=== PATIENT | male | born 1945 | race Caucasian/White ===

== ENCOUNTER 2016-12-21 09:11 | Inpatient (IN) | payer OTHER, MEDICAID ==
[2016-12-21 09:15] VITALS: BMI 28.5
--- NOTE | 2016-12-21 09:30 | ED PDOC ---
HPI: Chest Pain Time Seen by Provider: 12/21/16 09:18 Chief Complaint (Nursing): GI Problem Chief Complaint (Provider): Chest pain History Per: Patient History/Exam Limitations: no limitations Onset/Duration Of Symptoms: Days (x2 days) Current Symptoms Are (Timing): Better Additional Complaint(s): 71 y/o male with a past medical history of hypertension, Parkinson's disease, and Peripheral vascular disease (PVD) who presents to the emergency department with a complaint of a chest pain described as heavy and non-radiating since 12/19/2016. Associated with vomiting and shortness of breath. Reports symptoms resolved this morning on his way to the emergency department. Denies any further medical complaints. Past Medical History Reviewed: Historical Data, Nursing Documentation, Vital Signs Vital Signs: Last Vital Signs Temp 98 F 12/21/16 09:14 Pulse 109 H 12/21/16 09:14 Resp BP 105/63 12/21/16 09:14 Pulse Ox 100 12/21/16 10:40 - Medical History PMH: HTN, Parkinson's Disease Other PMH: Peripheral vascular disease (PVD) - Surgical History Surgical History: No Surg Hx - Family History Family History: States: Unknown Family Hx - Allergies Allergies/Adverse Reactions: Allergies Allergy/AdvReac Type Severity Reaction Status Date / Time No Known Allergies Allergy Verified 12/21/16 09:21 Review of Systems ROS Statement: Except As Marked, All Systems Reviewed And Found Negative (As per HPI otherwise negative) Cardiovascular: Positive for: Chest Pain (Heaviness and non radiating) Respiratory: Positive for: Shortness of Breath Gastrointestinal: Positive for: Vomiting Physical Exam - Reviewed Nursing Documentation Reviewed: Yes Vital Signs Reviewed: Yes - Physical Exam Appears: Positive for: Well, Non-toxic, No Acute Distress Head Exam: Positive for: ATRAUMATIC, NORMAL INSPECTION, NORMOCEPHALIC Skin: Positive for: Normal Color, Warm, Dry Cardiovascular/Chest: Positive for: Regular Rate, Rhythm. Negative for: Murmur Respiratory: Positive for: Normal Breath Sounds (Lungs clear bilaterally). Negative for: Accessory Muscle Use, Respiratory Distress Gastrointestinal/Abdominal: Positive for: Normal Exam, Soft. Negative for: Tenderness Extremity: Positive for: Normal ROM, Other (Tremor noted to the right upper extremity). Negative for: Tenderness, Swelling Neurologic/Psych: Positive for: Alert, Oriented (x3) - Laboratory Results Result Diagrams: 12/21/16 10:25 12/21/16 10:25 - ECG O2 Sat by Pulse Oximetry: 100 (RA) Pulse Ox Interpretation: Normal - Progress Re-evaluation Time: 10:36 Condition: Improved - Critical Care Total Time (In Min): 30 Documented Critical Care: Time excludes all time spent performint seperately billable procedures Medical Decision Making Medical Decision Making: Time: 09:24 Initial Impression: Chest pain Initial Plan: --EKG --CMP --Troponin I --Urine DIP --CBC w. diff --Chest x-ray --Aspirin 325 mg PO --Reevaluation Pt developed tachycardic rhym irreg irreg. c/o mild chest pain, denies dizziness. EKG revealed Afib with RVR. BP 107/85 Cardizem 10 mg IVP given with heart rate 80-95 BP 85/56. Pt denies dizziness. Will give Dig 0.25 mg IVP and hold cardizem drip until BP improves. Time: 10:22 --Cardizem 125mg IV 5mg/hr --Lanoxin 0.25 mg IVP Time: 10:35 --Admit to hospital routine: As inpatient in telemetry for Afib RVR and chest pain under the care of Dr. Yfn Haynes MD Scribe Attestation: Documented by Marie Ortiz, acting as a scribe for George Nguyễn MD. Provider Scribe Attestation: All medical record entries made by the Scribe were at my direction and personally dictated by me. I have reviewed the chart and agree that the record accurately reflects my personal performance of the history, physical exam, medical decision making, and the department course for this patient. I have also personally directed, reviewed, and agree with the discharge instructions and disposition. Disposition - Clinical Impression Clinical Impression: Atrial fibrillation with RVR, Chest pain - Patient ED Disposition Is Patient to be Admitted: Yes - Disposition Disposition Time: 10:35 Condition: FAIR - Pt Status Changed To: Hospital Disposition Of: Inpatient - Admit Certification Admit to Inpatient:: After my assessment, the patient will require hospitalization for at least two midnights. This is because of the severity of symptoms shown, intensity of services needed, and/or the medical risk in this patient being treated as an outpatient. - POA Present On Arrival: None
[2016-12-21] MEDS ORDERED: Digoxin 500 mcg/2ml (0.5 mg/2ml) Inj IVP STA (10:23)
[2016-12-21] MEDS ORDERED: Digoxin 500 mcg/2ml (0.5 mg/2ml) Inj ONE (10:37)
[2016-12-21 10:45] LABS: BASO % 0.7 % (0.0-2.0); HEMATOCRIT 38.3 % (35.0-51.0); LYMPH # 0.5 K/uL (1.0-4.3); LYMPH % 7.8 % (20.0-40.0); MEAN CELL VOLUME 88.5 fl (80.0-94.0); MEAN CORPUSCULAR HEMOGLOBIN 29.6 pg (27.0-31.0); MEAN CORPUSCULAR HGB CONC 33.4 g/dL (33.0-37.0); MEAN PLATELET VOLUME 10.5 fl (7.2-11.7); MONO # 0.3 K/uL (0.0-0.8); MONO % 4.3 % (0.0-10.0); NEUT # 5.7 K/uL (1.8-7.0); NEUT % 87.2 % (50.0-75.0); NRBC % 0.2 % (0.0-0.0); PLATELET COUNT 148 K/uL (130-400); RED CELL DISTRIBUTION WIDTH 13.3 % (11.5-14.5); WHITE BLOOD COUNT 6.5 K/uL (4.8-10.8)
[2016-12-21 11:01] LABS: ALB/GLOB RATIO 1.4 (1.0-2.1); ALKALINE PHOSPHATASE 39 U/L (38-126); ALT/SGPT 48 U/L (21-72); AST/SGOT 64 U/L (17-59); BILIRUBIN,TOTAL 1.1 mg/dl (0.2-1.3); BLOOD UREA NITROGEN 35 mg/dl (9-20); CALCIUM 8.9 mg/dL (8.4-10.2); CARBON DIOXIDE 19 mmol/L (22-30); CHLORIDE 104 mmol/L (98-107); GFR AFRICAN-AMERICAN > 60; GLUCOSE,RANDOM 76 mg/dL (75-110); SODIUM 140 mmol/l (132-148); TOTAL PROTEIN 7.5 G/DL (6.3-8.2)
[2016-12-21] MEDS ORDERED: Enoxaparin 60 mg Syringe SC ONE (11:02)
[2016-12-21 12:07] LABS: NEUTROPHIL 87 % (42-75); TOTAL CELLS COUNTED 100
[2016-12-21 12:08] LABS: LARGE PLATELETS PRESENT
--- NOTE | 2016-12-21 13:56 | CP.PCM.CON ---
Past Patient History - Past Social History Smoking Status: Never Smoked - CARDIAC Hx Hypertension: Yes - PULMONARY Hx Asthma: Yes - NEUROLOGICAL Hx Parkinson's Disease: Yes - PSYCHIATRIC Hx Substance Use: No - SURGICAL HISTORY Hx Surgeries: No - ANESTHESIA Hx Anesthesia: No Meds Allergies/Adverse Reactions: Allergies Allergy/AdvReac Type Severity Reaction Status Date / Time No Known Allergies Allergy Verified 12/21/16 09:21 - Medications Medications: Current Medications Diltiazem HCl (Cardizem) 10 mg IVP ONCE ONE Stop: 12/21/16 13:53 Diltiazem HCl 100 mg/ Sodium (Chloride) 100 mls @ 5 mls/hr IV .Q20H ONE; 5 MG/ HR PRN Reason: Protocol Stop: 12/22/16 06:21 Last Admin: 12/21/16 11:00 Dose: Not Given Results - Vital Signs Recent Vital Signs: Last Vital Signs Temp 98 F 12/21/16 09:14 Pulse 100 H 12/21/16 12:29 Resp 17 12/21/16 12:29 BP 155/77 H 12/21/16 12:29 Pulse Ox 99 12/21/16 12:29 - Labs Result Diagrams: 12/23/16 04:15 12/23/16 04:15 Labs: Laboratory Results - last 24 hr 12/21/16 12/21/16 10:25 10:25 WBC 6.5 RBC 4.33 L Hgb 12.8 Hct 38.3 MCV 88.5 MCH 29.6 MCHC 33.4 RDW 13.3 Plt Count 148 MPV 10.5 Neut % (Auto) 87.2 H Lymph % (Auto) 7.8 L [place] % (Auto) 4.3 Eos % (Auto) 0.0 Baso % (Auto) 0.7 Neut # 5.7 Lymph # 0.5 L [place] # 0.3 Eos # 0.0 Baso # 0.0 Neutrophils % (Manual) 87 H Band Neutrophils % 1 Lymphocytes % (Manual) 8 L Monocytes % (Manual) 4 Platelet Estimate Normal Large Platelets Present Anisocytosis (manual) Slight Sodium 140 Potassium 4.0 Chloride 104 Carbon Dioxide 19 L Anion Gap 21 H BUN 35 H Creatinine 0.8 Est GFR ( Amer) > 60 Est GFR (Non-Af Amer) > 60 Random Glucose 76 Calcium 8.9 Total Bilirubin 1.1 AST 64 H ALT 48 Alkaline Phosphatase 39 Troponin I 0.2840 H* Total Protein 7.5 Albumin 4.3 Globulin 3.1 Albumin/Globulin Ratio 1.4 Assessment & Plan (1) NSTEMI (non-ST elevated myocardial infarction) Status: Acute (2) Atrial fibrillation with RVR Status: Acute (3) Chest pain Status: Acute - Assessment and Plan (Free Text) Plan: PLAN FOR CATH TOMORROW. AFIB CONVERTED POST MAG DRIP. PT HAD RECENT GI ILLNESS WITH DIARRHEA CARDIZEM DRIP DECREASED AND METOPROLOL ADDED. PT NOW IN SR MONITOR AND REPLEAT LYTES. IVF FOR HYDRATION
[2016-12-21] MEDS ORDERED: Magnesium Sulfate 2 gm/50 ml 2 GM/50 ML BAG IVPB ONE (14:03)
[2016-12-21] MEDS ORDERED: Sodium Chloride 0.9% 1,000 ML IV SCH ×2 (15:30→20:11)
--- NOTE | 2016-12-21 15:41 | RAD ---
HISTORY: chest pain COMPARISON: No prior. TECHNIQUE: Chest PA and lateral FINDINGS: LUNGS: No active pulmonary disease. PLEURA: No significant pleural effusion identified. No pneumothorax apparent. CARDIOVASCULAR: Normal. OSSEOUS STRUCTURES: No significant abnormalities. VISUALIZED UPPER ABDOMEN: Normal. OTHER FINDINGS: None. IMPRESSION: No active disease.
[2016-12-21] MEDS ORDERED: Enoxaparin 60 mg Syringe SC SCH (21:00)
[2016-12-22 02:34] LABS: ALB/GLOB RATIO 1.3 (1.0-2.1); ALKALINE PHOSPHATASE 30 U/L (38-126); ALT/SGPT 53 U/L (21-72); AST/SGOT 51 U/L (17-59); BILIRUBIN,TOTAL 0.7 mg/dl (0.2-1.3); BLOOD UREA NITROGEN 25 mg/dl (9-20); CARBON DIOXIDE 23 mmol/L (22-30); CHLORIDE 106 mmol/L (98-107); CHOLESTEROL 108 mg/dL (0-199); GFR AFRICAN-AMERICAN > 60; GLUCOSE,RANDOM 85 mg/dL (75-110); POTASSIUM 3.9 MMOL/L (3.6-5.0); SODIUM 137 mmol/l (132-148)
[2016-12-22 02:53] LABS: T4 6.58 ug/dl (5.5-11.0)
[2016-12-22 03:04] LABS: THYROID STIMULATING HORMONE 0.71 mIU/ML (0.46-4.68)
[2016-12-22 05:41] LABS: BASO % 0.5 % (0.0-2.0); EOS % 0.1 % (0.0-4.0); HEMATOCRIT 34.1 % (35.0-51.0); LYMPH # 1.2 K/uL (1.0-4.3); LYMPH % 21.2 % (20.0-40.0); MEAN CELL VOLUME 90.3 fl (80.0-94.0); MEAN CORPUSCULAR HEMOGLOBIN 29.3 pg (27.0-31.0); MEAN CORPUSCULAR HGB CONC 32.5 g/dL (33.0-37.0); MEAN PLATELET VOLUME 11.3 fl (7.2-11.7); MONO # 0.5 K/uL (0.0-0.8); MONO % 9.4 % (0.0-10.0); NEUT % 68.8 % (50.0-75.0); RED CELL DISTRIBUTION WIDTH 12.9 % (11.5-14.5); WHITE BLOOD COUNT 5.8 K/uL (4.8-10.8)
--- NOTE | 2016-12-22 08:39 | CARD ---
APPROVED REPORT EKG Measurement Heart [id number] <Conclusion> Undetermined rhythm Marked ST abnormality, possible inferior subendocardial injury Abnormal ECG
[2016-12-22] MEDS ORDERED: Patient's Own Med (Multivitamin [Daily Vite] 1 TAB) PO SCH (09:00)
[2016-12-22] MEDS ORDERED: Patient's Own Med (Metformin Er [Glucophage Xr] 500 mg) PO SCH (09:00)
[2016-12-22 09:04] LABS: PARTIAL THROMBOPLASTIN TIME 34.9 Seconds (25.6-37.1)
[2016-12-22] MEDS ORDERED: Dextrose 50% SYRINGE Inj (50 ml) IVP ONE (10:56)
[2016-12-22] MEDS: Pantoprazole 40 mg EC Tab PO SCH (11:15)
[2016-12-22] MEDS: Carbidopa/Levodopa 25/250 PO SCH ×2 (11:15→21:48)
[2016-12-22] MEDS: Levothyroxine 75 MCG TAB PO SCH (11:15)
[2016-12-22] MEDS: Multivitamin With Minerals Tab PO SCH (11:16)
--- NOTE | 2016-12-22 20:50 | CP.PCM.HP ---
Past Patient History - Past Medical History & Family History Past Medical History?: Yes - Past Social History Smoking Status: Never Smoked - CARDIAC Hx Hypertension: Yes - PULMONARY Hx Asthma: Yes - NEUROLOGICAL Hx Parkinson's Disease: Yes - HEENT Hx HEENT Problems: No - RENAL Hx Chronic Kidney Disease: No - ENDOCRINE/METABOLIC Hx Endocrine Disorders: Yes - HEMATOLOGICAL/ONCOLOGICAL Hx Blood Disorders: No - INTEGUMENTARY Hx Dermatological Problems: No - MUSCULOSKELETAL/RHEUMATOLOGICAL Hx Musculoskeletal Disorders: Yes Hx Falls: No - GENITOURINARY/GYNECOLOGICAL Hx Genitourinary Disorders: No - PSYCHIATRIC Hx Substance Use: No - SURGICAL HISTORY Hx Surgeries: No - ANESTHESIA Hx Anesthesia: No Meds Allergies/Adverse Reactions: Allergies Allergy/AdvReac Type Severity Reaction Status Date / Time No Known Allergies Allergy Verified 12/21/16 09:21 Results - Vital Signs Recent Vital Signs: Last Vital Signs Temp 97.2 F L 12/22/16 20:29 Pulse 66 12/22/16 20:29 Resp 20 12/22/16 20:29 BP 154/80 H 12/22/16 20:29 Pulse Ox 98 12/22/16 20:29 - Labs Result Diagrams: 12/22/16 04:10 12/22/16 02:21 Labs: Laboratory Results - last 24 hr 12/22/16 12/22/16 12/22/16 02:21 02:45 04:10 WBC 5.8 RBC 3.78 L Hgb 11.1 L Hct 34.1 L MCV 90.3 MCH 29.3 MCHC 32.5 L RDW 12.9 Plt Count 124 L D MPV 11.3 Neut % (Auto) 68.8 Lymph % (Auto) 21.2 [place] % (Auto) 9.4 Eos % (Auto) 0.1 Baso % (Auto) 0.5 Neut # 4.0 Lymph # 1.2 [place] # 0.5 Eos # 0.0 Baso # 0.0 PT INR APTT Sodium 137 Potassium 3.9 Chloride 106 Carbon Dioxide 23 Anion Gap 13 BUN 25 H Creatinine 0.8 Est GFR ( Amer) > 60 Est GFR (Non-Af Amer) > 60 POC Glucose (mg/dL) Random Glucose 85 Calcium 8.0 L Total Bilirubin 0.7 AST 51 ALT 53 Alkaline Phosphatase 30 L D Troponin I 1.5900 H* Total Protein 6.0 L Albumin 3.4 L D Globulin 2.6 Albumin/Globulin Ratio 1.3 Triglycerides 68 Cholesterol 108 LDL Cholesterol Direct 52 HDL Cholesterol 41 Vitamin B12 693 Thyroxine (T4) 6.58 Total T3 0.609 L TSH 3rd Generation 0.71 12/22/16 12/22/16 12/22/16 08:00 10:55 11:15 WBC RBC Hgb Hct MCV MCH MCHC RDW Plt Count MPV Neut % (Auto) Lymph % (Auto) [place] % (Auto) Eos % (Auto) Baso % (Auto) Neut # Lymph # [place] # Eos # Baso # PT 12.1 INR 1.1 APTT 34.9 Sodium Potassium Chloride Carbon Dioxide Anion Gap BUN Creatinine Est GFR ( Amer) Est GFR (Non-Af Amer) POC Glucose (mg/dL) 67 202 H Random Glucose Calcium Total Bilirubin AST ALT Alkaline Phosphatase Troponin I Total Protein Albumin Globulin Albumin/Globulin Ratio Triglycerides Cholesterol LDL Cholesterol Direct HDL Cholesterol Vitamin B12 Thyroxine (T4) Total T3 TSH 3rd Generation
[2016-12-22] MEDS ORDERED: Enoxaparin 60 mg Syringe SC SCH (21:00)
[2016-12-23 06:08] LABS: HEMATOCRIT 34.8 % (35.0-51.0); MEAN CORPUSCULAR HGB CONC 32.6 g/dL (33.0-37.0); RED CELL DISTRIBUTION WIDTH 13.1 % (11.5-14.5); WHITE BLOOD COUNT 5.1 K/uL (4.8-10.8)
[2016-12-23 06:17] LABS: ALB/GLOB RATIO 1.2 (1.0-2.1); ALKALINE PHOSPHATASE 28 U/L (38-126); AST/SGOT 40 U/L (17-59); BILIRUBIN,TOTAL 0.6 mg/dl (0.2-1.3); BLOOD UREA NITROGEN 12 mg/dl (9-20); CALCIUM 7.7 mg/dL (8.4-10.2); CARBON DIOXIDE 24 mmol/L (22-30); CHLORIDE 108 mmol/L (98-107); GFR AFRICAN-AMERICAN > 60; GLUCOSE,RANDOM 98 mg/dL (75-110); POTASSIUM 3.4 MMOL/L (3.6-5.0); SODIUM 139 mmol/l (132-148); TOTAL PROTEIN 5.6 G/DL (6.3-8.2)
[2016-12-23 06:18] LABS: ALT/SGPT 24 U/L (21-72)
[2016-12-23] MEDS: Pantoprazole 40 mg EC Tab PO SCH (08:48)
[2016-12-23] MEDS: Multivitamin With Minerals Tab PO SCH ×2 (08:51→08:58)
[2016-12-23] MEDS: Levothyroxine 75 MCG TAB PO SCH (08:51)
[2016-12-23] MEDS: Carbidopa/Levodopa 25/250 PO SCH ×3 (08:52→18:32)
--- NOTE | 2016-12-23 09:48 | HP ---
CHIEF COMPLAINT: Chest pain. HISTORY OF PRESENT ILLNESS: This is a 71-year-old man with known case of Parkinson disease and hypertension and peripheral vascular disease, who [facility] and being followed up by private physicians over there, who was having on and off chest pains, started since last Thursday, associated with shortness of breath and occasional episodes of vomiting. So, patient was brought to emergency room and was admitted for further management. REVIEW OF SYSTEMS: Positive for chest pain, shortness of breath, and episodes of vomiting. Review of systems otherwise is negative for headache, dizziness, syncope, loss of consciousness, nausea, diarrhea, constipation, any knee joint or extremity pain. Review of systems of all other organ system is unremarkable. PAST MEDICAL HISTORY: Significant for hypertension, Parkinson disease, and peripheral vascular disease. PAST SURGICAL HISTORY: Unremarkable. PERSONAL HISTORY: Patient is currently nonsmoker and nondrinker. No substance abuse. MEDICATIONS: Patient is on multiple medications, which is as per reconciliation sheet, which was reviewed and ordered. FAMILY HISTORY: Noncontributory. PHYSICAL EXAMINATION: GENERAL: Well-built, well-nourished, overweight [place] male, in no acute distress. VITAL SIGNS: Temperature 99.3, pulse 70, respirations 20, and blood pressure 112/64. HEENT: Pupils reacting to light. No nystagmus. Normocephalic, atraumatic skull. NECK: No JVD. No thyromegaly. No lymphadenopathy. HEART: S1 and S2, normal and regular. No significant murmur, gallop, or rub is heard. LUNGS: Shows good bilateral air exchange. No rales or rhonchi. ABDOMEN: Soft and nontender. No organomegaly. No fluids. Bowel sounds are present. EXTREMITIES: No edema. No calf swelling. No tenderness. No acute ischemia. CENTRAL NERVOUS SYSTEM: Patient is alert, awake, oriented x3. There is no sign of any acute gross focal motor or sensory neurological deficits. DIAGNOSTIC DATA: Available diagnostic data reviewed. Telemetry monitoring does not reveal significant arrhythmias. WBC is 5.8, hemoglobin 11.1, hematocrit 34.1, platelets 124. Sodium 137, potassium 3.9, chloride 106, bicarb 23, BUN 25, creatinine 0.8. SMA-12 is unremarkable. Troponin levels are 0.28, 1.93, 1.59. ADMITTING IMPRESSION: Acute non-ST myocardial infarction, coronary artery disease, hypertension, Parkinson disease, overweight. PLAN: As ordered. Case and plan discussed with patient. Yfn Haynes MD
[2016-12-23] MEDS ORDERED: Perflutren Lipid Microsphere 1.5 ML SUS IV ONE (11:45)
--- NOTE | 2016-12-23 11:58 | CARD ---
APPROVED REPORT EKG Measurement Heart [id number] <Conclusion> Atrial fibrillation with rapid ventricular response with premature ventricular or aberrantly conducted complexes ST depression, consider subendocardial injury Abnormal ECG
--- NOTE | 2016-12-23 14:49 | CARD ---
APPROVED REPORT EXAM: Two-dimensional and M-mode echocardiogram with Doppler, color Doppler with contrast. Other Information Quality : GoodRhythm : NSR INDICATION Non STEMI Echo Enhancing Agent Indication: Endocardial border delineation Agent/Amount Used: Definity 2D DIMENSIONS IVSd1.31 (0.7-1.1cm)LVDd4.04 (3.9-5.9cm) LVOT Diameter1.99 (1.8-2.4cm)PWd0.96 (0.7-1.1cm) IVSs1.84 (0.8-1.2cm)LVDs2.61 (2.5-4.0cm) FS (%) 35.2 %PWs1.54 (0.8-1.2cm) M-Mode DIMENSIONS Left Atrium (MM)4.88 (2.5-4.0cm)IVSd1.65 (0.7-1.1cm) Aortic Root3.69 (2.2-3.7cm)LVDd4.36 (4.0-5.6cm) Aortic Cusp Exc.1.96 (1.5-2.0cm)PWd1.16 (0.7-1.1cm) IVSs2.01 cmFS (%) 49 % LVDs2.23 (2.0-3.8cm)PWs1.63 cm Aortic Valve AI P 1/2 Ooda172tw Mitral Valve MV E Gqughaja84.7cm/sMV DECEL [id number] A Zjktmwqw17.3cm/s MV RCL72ekF/A ratio0.8MVA (PHT)2.69cm2 TDI Lateral E' Peak V7.25cm/sMedial E' Peak V4.24cm/sE/Lateral E'11.1 E/Medial E'19.0 Pulmonary Valve PV Peak Tljqmvau845.7cm/s LEFT VENTRICLE The left ventricle is normal size. There is mild concentric left ventricular hypertrophy. The left ventricular function is normal. The left ventricular ejection fraction is within the normal range. The Ejection Fraction is 60-65%. There is mild hypokinesis in the apical anterior wall. The left ventricular diastolic function is normal. No left ventricle thrombus noted on this study. RIGHT VENTRICLE The right ventricle is normal size. There is normal right ventricular wall thickness. The right ventricular systolic function is normal. ATRIA The left atrium size is normal. The right atrium size is normal. The interatrial septum is intact with no evidence for an atrial septal defect. AORTIC VALVE The aortic valve is normal in structure and function. There is moderate aortic regurgitation. There is no aortic valvular stenosis. There is no aortic valvular vegetation. MITRAL VALVE The mitral valve is normal in structure and function. There is no evidence of mitral valve prolapse. There is no mitral valve stenosis. There is no mitral valve regurgitation noted. TRICUSPID VALVE The tricuspid valve is normal in structure and function. There is no tricuspid valve regurgitation noted. There is no tricuspid valve prolapse or vegetation. There is no tricuspid valve stenosis. PULMONIC VALVE The pulmonary valve is normal in structure and function. There is no pulmonic valvular regurgitation. There is no pulmonic valvular stenosis. GREAT VESSELS The aortic root is normal in size. The IVC is normal in size and collapses >50% with inspiration. PERICARDIAL EFFUSION The pericardium appears normal. There is no pleural effusion. <Conclusion> The left ventricle is normal size. There is mild concentric left ventricular hypertrophy. The left ventricular function is normal. The left ventricular ejection fraction is within the normal range. The Ejection Fraction is 60-65%. There is moderate aortic regurgitation.
[2016-12-23 16:42] VITALS: BP 115/65; PULSE 61; RESP 18; TEMP 97.8; O2SAT 98
--- NOTE | 2016-12-24 19:01 | CP.PCM.PN ---
Subjective - Date & Time of Evaluation Date of Evaluation: 12/23/16 Time of Evaluation: 07:00 - Subjective Subjective: NOTE FOR 12-23-16 SEEN AND EXAMINED. FAMILY PRESENT. PT POST CATH. TOLERATED WELL. HAS MID LAD LESION AND LESION OF BRANCH OF D1. FOR PCI IN TODAY. Objective - Vital Signs/Intake and Output Vital Signs (last 24 hours): Temp Pulse Resp BP Pulse Ox 97.8 F 61 18 115/65 98 12/23/16 12:21 12/23/16 12:21 12/23/16 12:21 12/23/16 12:21 12/23/16 12:21 - Labs Labs: 12/23/16 04:15 12/23/16 04:15 PT 12.1 Seconds (9.8-13.1) 12/22/16 08:00 INR 1.1 (0.9-1.2) 12/22/16 08:00 APTT 34.9 Seconds (25.6-37.1) 12/22/16 08:00 - Constitutional Appears: Well - Head Exam Head Exam: ATRAUMATIC, NORMAL INSPECTION, NORMOCEPHALIC - Eye Exam Eye Exam: EOMI, Normal appearance, PERRL. absent: Conjunctival injection, Nystagmus, Periorbital swelling, Periorbital tenderness, Scleral icterus Pupil Exam: NORMAL ACCOMODATION, PERRL - ENT Exam ENT Exam: Mucous Membranes Moist, Normal Exam. absent: Mucous Membranes Dry, Normal External Ear Exam, Normal Oropharynx, TM's Normal Bilaterally - Neck Exam Neck Exam: Full ROM, Normal Inspection. absent: Lymphadenopathy, Meningismus, Tenderness, Thyromegaly - Respiratory Exam Respiratory Exam: Clear to Ausculation Bilateral, NORMAL BREATHING PATTERN. absent: Accessory Muscle Use, Chest Wall Tenderness, Decreased Breath Sounds, Prolonged Expiratory Phase, Rales, Rhonchi, Wheezes, Respiratory Distress, Stridor - Cardiovascular Exam Cardiovascular Exam: REGULAR RHYTHM, +S1, +S2, Murmur. absent: Bradycardia, Tachycardia, Clicks, Diastolic murmur, Gallop, Irregular Rhythm, JVD, RRR, Rubs , +S4 - GI/Abdominal Exam GI & Abdominal Exam: Soft, Normal Bowel Sounds - Rectal Exam Rectal Exam: Deferred - Extremities Exam Extremities Exam: Full ROM, Normal Capillary Refill, Normal Inspection. absent : Calf Tenderness, Joint Swelling, Pedal Edema, Tenderness - Back Exam Back Exam: NORMAL INSPECTION. absent: CVA tenderness (L), CVA tenderness (R), Full ROM, muscle spasm, paraspinal tenderness, rash noted, tenderness, vertebral tenderness - Neurological Exam Neurological Exam: Alert, Awake, CN II-XII Intact, Normal Gait, Oriented x3. absent: Abnormal Gait, Altered, Motor Sensory Deficit, Reflexes Normal - Psychiatric Exam Psychiatric exam: Normal Affect, Normal Mood. absent: Agitated, Anxious, Depressed, Flat Affect, Homicidal Ideation, Manic, Suicidal Ideation - Skin Skin Exam: Dry, Intact, Normal Color, Warm. absent: Abrasion, Cyanosis, Diaphoretic, Erythema, Mottled, Pallor, Pallor, Petechiae, Rash, Urticaria, Vesicles Assessment and Plan (1) NSTEMI (non-ST elevated myocardial infarction) Status: Acute (2) Atrial fibrillation with RVR Status: Acute (3) Chest pain Status: Acute (4) Multi-vessel coronary artery stenosis Status: Acute - Assessment and Plan (Free Text) Plan: PCI AT [facility] [place]. CONT CURRENT CARE. MONITOR LYTES DIAGNOSTIC CATH SITE STABLE.
== END 2016-12-24 01:54 | disposition short-term general hospital (02) | DRG 282 ==
LOC: H.ER 09:11 → H.ERHOLD 10:35 → H.TEL 17:16
PROVIDERS: ADMIT Internal Medicine; ATTEND Internal Medicine
DX: I21.4 Non-ST elevation (NSTEMI) myocardial infarction (principal); G20 Parkinson's disease; I48.91 Unspecified atrial fibrillation; I73.9 Peripheral vascular disease, unspecified; I10 Essential (primary) hypertension; E66.3 Overweight; Z68.28 Body mass index [BMI] 28.0-28.9, adult; I25.10 Atherosclerotic heart disease of native coronary artery without angina pectoris